=== PATIENT | female | born 1990 | race Caucasian/White ===

== ENCOUNTER 2023-08-13 07:00 | Outpatient (CLI) | payer OTHER, SELFPAY ==
--- NOTE | 2023-08-13 07:15 | US_ITS ---
Patient: KERVIN DIOR Facility:?[facility] Patient ID:?[id number] Site Patient ID:?[id number] Site :?1990 Study:?US-OB Pelvis TV dating/viability-08/13/2023 7:53:00 AM Ordering Physician:JACKIE Final Report: INDICATION: First trimester scan, establish dates. COMPARISON: None. TECHNIQUE: Real-time arzate-scale imaging of the pelvis was performed. FINDINGS: Intrauterine gestational sac measuring 2 cm, 6 weeks 6 days. pole measures 4.6 millimeters, 6 weeks 1 day. 3.0 millimeter yolk sac. No heart tones. Subchorionic hemorrhage is present measures 2.8 x 0.9 x 1.2 cm. Corpus luteal cyst left ovary. Unremarkable right ovary. IMPRESSION: Intrauterine with crown-rump length measuring 4.6 millimeters. No heart tones. Follow-up in 11-14 days recommended. Subchorionic hemorrhage is present measuring 2.8 x 0.9 x 1.2 cm. Dictated by Haider Wellington MD @ 08/13/2023 9:35:45 AM Signed by:?Haider Wellington MD @08/13/2023 9:35:45 AM (Electronic Signature)
== END 2023-08-13 07:01 | disposition home or self-care (01) ==
LOC: US 07:00
PROVIDERS: Visit Provider Registered Nurse
DX: Z34.91 Encounter for supervision of normal pregnancy, unspecified, first trimester (principal); O20.9 Hemorrhage in early pregnancy, unspecified; Z3A.01 Less than 8 weeks gestation of pregnancy
CPT/HCPCS: 76817; 84702; 86850; 86900; 86901

== ENCOUNTER 2023-08-15 13:23 | Outpatient (CLI) | payer OTHER, SELFPAY | END 2023-08-15 13:24 | disposition home or self-care (01) | LOC: NFLDREF 08-18 09:37 | PROVIDERS: Visit Provider Registered Nurse | DX: Z34.01 Encounter for supervision of normal first pregnancy, first trimester (principal) | CPT/HCPCS: 84702 ==

== ENCOUNTER 2023-08-27 08:04 | Outpatient (CLI) | payer OTHER, SELFPAY ==
--- NOTE | 2023-08-27 08:15 | US_ITS ---
Patient: KERVIN DIOR Facility:?[facility] Patient ID:?[id number] Site Patient ID:?[id number]. Site :?1990 Study:?US-OB Pelvis TRANSVAGINAL-08/27/2023 8:33:09 AM Ordering Physician:?HEENA NYE Final Report: OBSTETRICAL ULTRASOUND, 08/27/2023 INDICATION: Early , unknown viability. COMPARISON: 08/13/2023 JOHN by US: 04/06/2024 Gestational age: 8 weeks 1 day TECHNIQUE: Transvaginal pelvic ultrasound. FINDINGS: No intrauterine . Endometrial stripe 5mm, mildly heterogeneous. Right ovary: Within normal limits Left ovary: Within normal limits IMPRESSION: Previously seen intrauterine is no longer present. TAYLER JENKINS M.D. Body/Diagnostic Radiologist [email or web address] NJG:maureen D& Transcribed: 1:[address]/Dictated by: Tayler Jenkins MD @ 08/27/2023 1:05:00 PM Signed by:?Tayler Jenkins MD @08/27/2023 1:23:54 PM (Electronic Signature)
== END 2023-08-27 08:05 | disposition home or self-care (01) ==
PROVIDERS: Visit Provider Registered Nurse
DX: Z34.91 Encounter for supervision of normal pregnancy, unspecified, first trimester (principal); Z3A.08 8 weeks gestation of pregnancy
CPT/HCPCS: 76817

== ENCOUNTER 2024-04-26 16:00 | Outpatient (CLI) | payer OTHER, SELFPAY | END 2024-04-26 16:01 | disposition home or self-care (01) | LOC: NFLDREF 04-29 06:24 | PROVIDERS: Visit Provider Registered Nurse | DX: Z87.59 Personal history of other complications of pregnancy, childbirth and the puerperium (principal) | CPT/HCPCS: 84702 ==

== ENCOUNTER 2024-04-29 16:10 | Outpatient (CLI) | payer OTHER, SELFPAY | END 2024-04-29 16:11 | disposition home or self-care (01) | LOC: NFLDREF 05-04 06:18 | PROVIDERS: Visit Provider Registered Nurse | DX: Z87.59 Personal history of other complications of pregnancy, childbirth and the puerperium (principal) | CPT/HCPCS: 84702 ==

== ENCOUNTER 2024-05-06 13:41 | Outpatient (CLI) | payer OTHER, SELFPAY ==
--- NOTE | 2024-05-06 14:00 | CRLHL7_ITS ---
For Patients: As a result of the Cures Act, medical imaging exams and procedure reports are released immediately into your electronic medical record. You may view this report before your referring provider. If you have questions, please contact your health care provider. INDICATION: First trimester scan, establish dates. COMPARISON: None. TECHNIQUE: Real-time arzate-scale imaging of the pelvis was performed. FINDINGS: Sonographic imaging demonstrates a single living intrauterine gestation. The embryo demonstrates a regular cardiac rate measuring 110 beats per minute. The embryo`s crown-rump length measurement of 1.1 cm corresponds to a gestational age of 7 weeks 2 days with a sonographic due date of 12/21/2024. There is a normal-appearing yolk sac. There are no gross abnormalities noted within the embryo at this early state of development. The gestational sac has a normal appearance. There is no evidence of a perigestational hemorrhage. The amount of fluid within the sac appears appropriate for gestational age. The cervix is closed. The myometrium appears normal. The ovaries are of normal size. Small cysts are present within each ovary. There are no suspicious fluid collections noted in the cul-de-sac. IMPRESSION: Normal first trimester OB ultrasound exam. Gestational age calculated at 7 weeks 2 days with a sonographic due date of 12/21/2024. Dictated by Haider Wellington MD @ 05/07/2024 9:53:20 AM (Electronically Signed)
== END 2024-05-06 13:42 | disposition home or self-care (01) ==
LOC: US 13:43
PROVIDERS: Visit Provider Advanced Practice Midwife
DX: Z34.91 Encounter for supervision of normal pregnancy, unspecified, first trimester (principal); Z3A.01 Less than 8 weeks gestation of pregnancy
CPT/HCPCS: 76817

== ENCOUNTER 2024-05-06 15:46 | Outpatient (CLI) | payer OTHER, SELFPAY | END 2024-05-06 15:47 | disposition home or self-care (01) | PROVIDERS: Visit Provider Advanced Practice Midwife | DX: Z34.91 Encounter for supervision of normal pregnancy, unspecified, first trimester (principal); Z3A.01 Less than 8 weeks gestation of pregnancy | CPT/HCPCS: 83020; 83021; 85660; 86592; 86703; 86704; 86706; 86762; 86787; 86803; 86850; 86900; 86901; 87086; 87340 ==

== ENCOUNTER 2024-08-06 10:06 | Outpatient (CLI) | payer BC, SELFPAY ==
--- NOTE | 2024-08-06 10:15 | CRLHL7_ITS ---
For Patients: As a result of the Century Cures Act, medical imaging exams and procedure reports are released immediately into your electronic medical record. You may view this report before your referring provider. If you have questions, please contact your health care provider. OB ULTRASOUND GREATER THAN 14 WEEKS, 08/06/2024 CLINICAL HISTORY: Anatomy scan. COMPARISON: None. TECHNIQUE: Real time arzate scale imaging of the fetus was performed transabdominally. FINDINGS: LMP: 03/20/2024. JOHN by LMP: 12/25/2024. GA: 19 weeks 6 days. Position: Multiple positions. Placenta/Cord: Fundal, posterior. Technique: TA. Placenta tip to internal OS: 7.7 cm. Umbilical Cord: 3 vessel cord. Placental Insertion: Eccentric, 2.4 cm from edge. Amniotic Fluid: 5.2 cm SDP. Cervix: Visualized. Technique: TA. Length of closed cervix: 4.5 cm. Observed Structures: Calvarium/Spine: Cerebellum 2.2 cm, 21 weeks 6 days Cisterna Magna 3.1 mm Nuchal Fold 4.3 mm Lateral Ventricle 6.5 mm CSP Midline Falx Choroid Plexus Spine Abdomen: Stomach Abd Cord Insert Urinary Bladder Kidneys Diaphragm Face: Nose/Lips Orbital View Profile Limbs: Upper Extremities Lower Extremities Hands Feet Vascular: 4 Ch Heart LVOT RVOT 3VV 2VTV Biometry: BPD: 4.8 cm, 20 weeks 3 days. 74% HC: 18.9 cm, 20 weeks 3 days. 68% AC: 16.2 cm, 21 weeks 2 days. 86% FL: 3.3 cm, 20 weeks 1 day. 53% FL/AC: 20.05% HC/AC Ratio: 1.11. Heart Rate: 147 bpm. Age by this US: 20 weeks 6 days. JOHN by this US: 12/18/2024. EFW: 372.67 grams. 0 lb 13 oz. Percentile by JOHN: 89% IMPRESSION: 1. Sonographic gestational age 20 weeks 6 days and sonographic due date 12/18/2024. Sonographic age 1 week ahead of the clinical age. 2. Estimated weight 89th percentile. Abdominal circumference 86th percentile. 3. Eccentric placental cord insertion 2.4 cm from the placental edge. 4. Incomplete visualization of the spine due to position. Remainder of the anatomic survey normal. Short term follow-up recommended. Haider Wellington M.D. Diagnostic Radiologist [email or web address] Transcribed: 2:17 am DW/Dictated by: Haider Wellington MD @ 08/06/2024 1:13:00 PM (Electronically Signed)
== END 2024-08-06 10:07 | disposition home or self-care (01) ==
LOC: US 10:07
PROVIDERS: Visit Provider Midwife
DX: Z34.92 Encounter for supervision of normal pregnancy, unspecified, second trimester (principal); Z3A.19 19 weeks gestation of pregnancy
CPT/HCPCS: 76805

== ENCOUNTER 2024-08-31 12:09 | Outpatient (CLI) | payer BC, SELFPAY ==
--- NOTE | 2024-08-31 12:15 | CRLHL7_ITS ---
For Patients: As a result of the Century Cures Act, medical imaging exams and procedure reports are released immediately into your electronic medical record. You may view this report before your referring provider. If you have questions, please contact your health care provider. OBSTETRICAL ULTRASOUND ??? FOLLOW-UP, 08/31/2024 INDICATION: Follow-up missing spine views. CLINICAL HISTORY: JOHN by LMP: 12/25/2024 Gestational Age: 23 weeks 3 days COMPARISON: 08/06/2024, 05/06/2024 TECHNIQUE: Real-time arzate-scale imaging of the fetus was performed transabdominal. FINDINGS: Fetus: Single Cervix: Not visualized positioning: Breech Amniotic fluid: 4.3 cm SDP Placenta technique: Transabdominal Placenta position: Posterior heart rate: 154 bpm IMPRESSION: Normal spine. HAIDER BARBOSA M.D. Diagnostic Radiologist [email or web address] Transcribed: 3:[address]/Dictated by: Haider Barbosa MD @ 08/31/2024 2:51:00 PM (Electronically Signed)
== END 2024-08-31 12:10 | disposition home or self-care (01) ==
LOC: US 12:09
PROVIDERS: Visit Provider Advanced Practice Midwife
DX: O35.FXX0 Maternal care for other (suspected) fetal abnormality and damage, fetal musculoskeletal anomalies of trunk, not applicable or unspecified (principal); Z3A.23 23 weeks gestation of pregnancy
CPT/HCPCS: 76816

== ENCOUNTER 2024-09-27 13:30 | Outpatient (CLI) | payer BC, SELFPAY | END 2024-09-27 13:31 | disposition home or self-care (01) | LOC: NFLDREF 09-30 23:21 | PROVIDERS: Visit Provider Advanced Practice Midwife | DX: Z34.92 Encounter for supervision of normal pregnancy, unspecified, second trimester (principal); Z3A.27 27 weeks gestation of pregnancy | CPT/HCPCS: 86592 ==

== ENCOUNTER 2024-11-30 13:08 | Outpatient (CLI) | payer BC, SELFPAY ==
[2024-12-01 13:26] LABS: Strep B DNA Probe Negative (Negative)
[2024-12-01 13:40] LABS: Strep B Susceptibility Needed? No
== END 2024-11-30 13:09 | disposition home or self-care (01) ==
LOC: NFLDREF 13:08
PROVIDERS: Visit Provider Advanced Practice Midwife
DX: Z34.93 Encounter for supervision of normal pregnancy, unspecified, third trimester (principal); Z3A.36 36 weeks gestation of pregnancy
CPT/HCPCS: 87081; 87653

== ENCOUNTER 2024-12-22 15:15 | Inpatient (IN) | payer BC, SELFPAY ==
[2024-12-22] VITALS (27 sets, daily range): BP systolic 109–138; BP diastolic 59–82; PULSE 54–75; RESP 12–18; TEMP 36.6–36.9; O2SAT 96–100; BMI 31.6
[2024-12-22 15:19] LABS: Hematocrit* 41.1 % (33.0-51.0); Hemoglobin* 13.9 gm/dL (12.0-16.0); Immature Granulocytes Abs Auto 0.03 K/uL (0.00-0.30); Immature Granulocytes Pct Auto 0.3 %; Lymphocytes Absolute Auto 2.36 K/uL (0.90-2.90); Mean Corpuscular HGB Conc 34 gm/dL (32-36); Mean Corpuscular Hemoglobin 31 pg (26-34); Mean Corpuscular Volume 91 fL (80-100); RDW Coefficient of Variation % 12.4 % (11.5-15.5); Red Blood Count* 4.52 m/uL (4.00-5.20); White Blood Count* 9.20 K/uL (4.50-11.00)
[2024-12-22] MEDS: LACTATED RINGERS 1000 ML 1,000 ML 1500 ML IV (15:30)
--- NOTE | 2024-12-22 15:33 | P.OBHP_ITS ---
OB - H&P: HPI History of Present Illness Chief complaint: maternity Narrative: Rk Maloney is a 34 year old female seen at 39 weeks 4 days gestational age. She was transferred to triage from clinic, the setting of newly diagnosed breech malpresentation with cervical exam of 5/100/- 1. Patient additionally had mild range blood pressure in the clinic, prompting BP monitoring in triage. Her is complicated only by prediabetes (normal 1 hour Glucola). She is an established patient of the midwifery service, I was consulted by John Jones CNM in the setting of breech malpresentation and advanced cervical dilation. Patient is understandably shaken up and emotional by the news of breech presentation. She notes that she has been having contractions the last few days, does not note that she has really felt many since her arrival in triage. Denies any vaginal bleeding or leaking of fluid. Endorses active movement. Otherwise in her normal state of health. Specific Issues/Plans `Partner: [place]?It is a girl! H&P:? 12/10/24 by Michael Brandon CNM ? #? Prediabetes-elevated hgbA1C 5.7, at NOB, nutrition consult completed. passed 1 hour gct #? Varicella non-immune Recommend vaccine Imaging:??? 05/06/2024: ?Normal first trimester OB ultrasound exam. Gestational age calculated at 7 weeks 2 days with a sonographic due date of 12/21/2024. 08/06/24: 20 week anatomy scan: Impression: 1. Sonographic gestational age 20 weeks 6 days and sonographic due date 12/18/2024. Sonographic age 1 week ahead of the clinical age. 2. Estimated weight 89th percentile. Abdominal circumference 86th percentile. 3. Eccentric placental cord insertion 2.4 cm from the placental edge. 4. Incomplete visualization of the spine due to position. Remainder of the anatomic survey normal. Short term follow-up recommended. Vaccinations:?? COVID: []? Flu: N/A Tdap: Declined 10/11/2024 RSV: N/A 32 week mental health: PHQ-9: 2, JAYLENE 7:3 Last pap:? [Only high-risk abnormal pap results in problem list]? PFSH PFSH Medical History Prediabetes ?R73.03 - Prediabetes (ICD-10) Spontaneous miscarriage ?O03.9 - Complete or unspecified spontaneous without complication (ICD-10) Social History Narrative: SOCIAL? ? Education: Bachelor's times two ? 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 ? Partner: [place]? work as a dog beautician Lives with: [place] Pets: 2 dogs Abuse: Denies past ? Unable to assess current, partner present? ? Special Diet: Denies? ? Ok with a blood transfusion: yes? ? Culture or advent beliefs: denies? RISK FACTORS? ? Exercise Times/wk: 4 times a week lifting and jogging, less since started due to fatigue Depression/Anxiety: denies? ? Previous Treatments NA ? Therapy NA JAYLENE: 2 PHQ 9: 1? ? Seat Belt Use: Routinely ? Smoking: Denies past/present? ? Alcohol/day: Denies while ? ?drinks once a week when not Caffeine: coffee one cup a day? ? Drug Use: Denies past/present? What is your current living situation?: I presently have a place to live Problems where you live: no known problems In the past 12 months, utilities in danger of being shut off: no In past 12 months, lack of transportation kept you from medical appts, meetings, work, or getting things needed for daily living: no In the past 12 mos, have been you worried that your food would run out before you had money to buy more?: never true In the past 12 mos, the food you bought just didn't last and you didn't have money to buy more?: never true Smoking Status: Never smoker How often does anyone, including family, friends and others, physically hurt you : never How often does anyone, including family, friends and others, insult or talk down to you: never How often does anyone, including family, friends and others, threaten you with harm: never How often does anyone, including family, friends and others, scream or curse at you: never Meds Home Medications and Allergies Home Medications ?Medication ?Instructions ?Recorded ?Confirmed ?Type docosahexaenoic acid 200 mg 200 mg PO DAILY 05/06/24 0 12/22/24 History capsule ( DHA) Allergies Allergy/AdvReac Type Severity Reaction Status Date / Time No Known Drug Allergies Allergy Verified 12/22/24 08:38 OB - H&P: Exam Physical Exam: Vital signs: Temp Pulse Resp BP 98.5 F 70 18 131/72 12/22/24 15:15 12/22/24 15:29 12/22/24 15:15 12/22/24 15:29 Narrative: General: Alert and oriented, no acute distress Psych: Appropriate mood and affect Abdomen: Gravid. Transabdominal ultrasound confirms breech male presentation by John Jones CNM. Cervix: 5/100/-1 per John Jones CNM. FHR: Reactive. Baseline of 135 beats per minute, moderate variability, several qualifying 15 x 15 accelerations present. No decelerations. [place]: Siomara about every 3-4 minutes, described as crampy. Assessment and Plan Assessment and plan (1) Breech position of fetus: Status: Acute (2) Prediabetes: Problem comment: 5.7 hgbA1C at NOB Status: Acute (3) : Status: Acute Plan Rk is a 34yo at 39w4d GA admitted for primary in the setting of malpresentation with advanced cervical dilation, 5/100/-1. is complicated by elevated blood pressure without a diagnosis of hypertension , prediabetes (normal 1 hour Glucola). Patient was confirmed to be breech today on bedside ultrasound in the clinic, 5/100/-1 per John Jones CNM. She was transferred to triage for monitoring, discussion of next steps and BP monitoring. On arrival, she has been normotensive. Denies headache, vision changes or right upper quadrant pain. Preeclampsia labs were obtained, pending at this time. I counseled patient on options in the setting of malpresentation at term with advanced cervical dilation. Explained I would advise against a samuel breech vaginal delivery given the associated risks. Typically, we could consider an external cephalic version but I would be hesitant to offer this in the setting as I do think she would be at significantly increased risk of adverse outcomes. Reviewed standard risks of ECV would include unsuccessful procedure, nonreassuring heart tones, rupture membranes, cord prolapse, placental abruption and maternal hemorrhage. Specifically, with her degree of dilation and the breech being well applied to the cervix I think it would be very unlikely to be successful. In addition, I think she would be at significantly increased risk of PROM and potentially cord accident. As such, my medical recommendation would be to proceed with a primary delivery. Discussed the risks and benefits of procedure - including risk of bleeding, infection, damage to surrounding structures (uterus, tubes, ovaries, bowel, bladder, blood vessels, baby), difficult extraction. After discussion, written consent was obtained. She is understandably disappointed but accepts this as the best course of action given a challenging circumstance. Emotional support provided. - Plan to proceed with primary delivery. OR crew notified of unscheduled . - Plan perioperative Ancef. Patient has no known allergies - Type and screen, CBC, creatinine and AST/ALT were drawn at admission - Blood type AB-positive - GBS negative - Pediatrics to attend delivery in the setting of breech and unscheduled
[2024-12-22 15:43] LABS: Slide Review Reflex No
[2024-12-22 16:05] LABS: Alanine Aminotransferase* 19 U/L (4-35); Aspartate Amino Transferase* 41 U/L (12-35)
[2024-12-22 16:21] LABS: Blood Urea Nitrogen* 7 mg/dL (5-24); Creatinine* 0.6 mg/dL (0.5-1.5); Est. Creatinine Clearance* 111.35; Estimated Glomerular Filt Rate 122 ml/min
[2024-12-22] MEDS: CEFAZOLIN 2 GM INJ IVP (16:28)
[2024-12-22] MEDS: OXYTOCIN 30 unit/500 ML in NS 30 UNIT/500 ML BAG 300 UNIT IVPB (16:49)
--- NOTE | 2024-12-22 17:49 | P.ANES_ITS ---
Anesthesia Charges Start Date/Time Anesthesia Start Date: 12/22/24 Anesthesia Start Time: 16:13 Stop Date/Time Anesthesia Stop Date: 12/22/24 Anesthesia Stop Time: 17:44 Coding CPT Codes CPT Codes: ANESTH CS DELIVERY - 95663 ([id number]) P2 - PATIENT W/MILD SYST DISEASE, QZ - CIVIL ENGINEERING PROFESSOR SVC W/O EVAPORATOR SUPERVISOR BY
--- NOTE | 2024-12-22 17:49 | P.NB_ITS ---
Nerve Block Nerve Block Time Seen by Provider: 17:34 Date Seen: 12/22/24 Type of block requested by surgeon for post-operative analgesia: TAP Side: bilateral Time out performed: Yes Verification of patient name: Yes Verification of date of : Yes Site marking: not applicable Name of person performing procedure: Tristan Continuous monitoring Was continuous monitoring of O2 sat, B/P, alarm security or surveillance monitor, recorded every 15 minutes?: Yes Procedure Checklist: sterile prep, needles and gloves Ultrasound guided. Images saved: Yes Medications given in 5ml increments after negative aspiration: Marcaine %: 0.25 mL: 30 Needle gauge: 20 and Exparel mL: 10 Patient tolerated procedure well: Yes Block Charges Block Charge (with Pro Fee): TAP Bilateral Use of Ultrasound Machine for Block: Yes- US Guidance/pain block
--- NOTE | 2024-12-22 17:49 | W.ANESCHARGE ---
Anesthesia Charges Start Date/Time Anesthesia Start Date: 12/22/24 Anesthesia Start Time: 16:13 Stop Date/Time Anesthesia Stop Date: 12/22/24 Anesthesia Stop Time: 17:44 Coding CPT Codes CPT Codes: ANESTH CS DELIVERY - 42323 ([id number]) P2 - PATIENT W/MILD SYST DISEASE, QZ - HEADMASTER/MISTRESS SVC W/O SEISMOLOGY TEACHER BY
--- NOTE | 2024-12-22 17:50 | PM.OBPRCCS ---
Procedure Time Seen by Provider: 17:50 Date of procedure: 12/22/24 Pre-op diagnosis: Breech malpresentation, advanced cervical dilation, elevated BP without a diagnosis of HTN Post-op diagnosis: same Procedure Done: Global Will [facility] bill your pro fee for this procedure?: Yes Blood Loss Measurement Type: QBL (025) Bakri Used: No IV fluids (mL): 1,000 Urine Output (mL): 100 Urine Output Comment: Clear, yellow Surgeon: Woodrow Jaime MD Anesthesia Type: Spinal Findings: Liveborn female fetus, aidee breech presentation Unremarkable uterus, bilateral fallopian tubes and ovaries Procedure Name: Primary delivery Procedure Description: Patient was taken to the operating room with IV running. She received cefazolin in preoperative prophylaxis. Spinal anesthesia was administered. Reed catheter was inserted. She was prepped and draped in the usual sterile fashion. Anesthesia was tested and found to be adequate. A low-transverse skin incision was made with a scalpel and carried through to the underlying layer of fascia with the scalpel. The subcutaneous fat was dissected off the underlying fascia with Bovie and blunt dissection. The fascia was nicked in the midline with a scalpel, and this incision was extended laterally with scissors. The rectus muscles were in the midline. Peritoneum was identified and entered bluntly. Bovie was used to widen this opening laterally. Neno O retractor was inserted and tightened down, providing excellent visualization of the lower uterine segment. The bladder reflection was found to be advanced along the lower uterine segment. A bladder flap was created with a combination of sharp and blunt dissection. Low-transverse uterine incision was made with a scalpel. Incision was widened bluntly. The infant's breech was grasped through the hysterotomy and elevated to the hysterotomy. Fundal pressure was applied in order to facilitate delivery of the body, where legs were noted to be extended where Pinard maneuver was utilized to gently facilitate flexion of the knee and delivery of the lower extremities. Body was delivered to the level of the scapula, where body was rotated and the anterior arm was swept down and out to deliver the right arm via Loveset maneuver. Baby was rotated 180 degrees, where the same was performed to deliver the left arm. Fundal pressure was again applied and the head was flexed by applying gentle pressure on the maxilla where the head was delivered atraumatically. No nuchal cord was noted. Baby was stimulated, noted to be vigorous. Cord was clamped and cut after 30 seconds. was handed off to attending Pediatrics provider and nurses. The placenta was delivered with gentle traction on the cord. The uterus was cleaned of all clots and debris with the dry lap pad. IV Pitocin infusion was started. The hysterotomy was reapproximated with 0 Vicryl in a running, locked fashion. Second layer of the same suture was used in imbricating fashion to obtain hemostasis. The adnexa were examined and noted to be normal in appearance. The cul-de-sac and gutters were cleansed with dampened laparotomy sponge, removing any further clots and debris. The Neno O retractor was removed. The hysterotomy was reexamined and found to be hemostatic. The rectus muscles were examined and found to be hemostatic. The fascia was reapproximated with 0 Vicryl in a running fashion. Subcutaneous fat was irrigated and Bovie used on oozing vessels. The subcutaneous fat did not require closure. The skin was closed with a subcuticular stitch of 3-0 monocryl. Surgical glue was applied above this. Patient tolerated procedure well was taken to recovery area in stable condition. Surgical debrief was completed. details: - Liveborn female fetus - weight: 3500g - APGARs were 8 and 9 at 1 and 5 minutes respectively Complications: None Pathology: specimen obtained, sent to pathology Surgery Debrief Performed: Yes Condition: stable Disposition: floor total score - 1 minute: 8 total score - 5 minute: 9
[2024-12-22] MEDS: LACTATED RINGERS 1000 ML 1,000 ML 125 ML IV (19:08)
[2024-12-22] MEDS: ACETAMINOPHEN 500 MG TABLET 1000 MG PO (19:09)
[2024-12-22 21:01] LABS: Protein Creatinine Ratio Urine 0.38 (0-0.19)
[2024-12-23] VITALS (21 sets, daily range): BP systolic 112–126; BP diastolic 65–76; PULSE 57–68; RESP 16; TEMP 36.6–37.2; O2SAT 95–98
[2024-12-23] MEDS: LACTATED RINGERS 1000 ML 1,000 ML 125 ML IV (02:20)
[2024-12-23 05:45] LABS: Hemoglobin* 10.3 gm/dL (12.0-16.0)
--- NOTE | 2024-12-23 09:20 | PM.OBPNVD1 ---
OB - PN:Subj Subjective Date Seen: 12/23/24 Patient comments OB post-: no complaints, pain well controlled and tolerating diet infant status: and doing well feeding status: exclusively Narrative: Rk feels well.? Her pain is well controlled with current medications.? She has no new complaints.? Urinary output is adequate and she is voiding without difficulty.? Has a good appetite, is tolerating a general diet. She has not yet passed flatus but feels that her stomach is gurgling. Encouraged ambulation/movement to encouraged flatus.? Has scant amount of rubra lochia.? She is ambulating well.?She is working on latching and has hand expressed and fed that to baby. Encouraged and RN assistance to improve latching. Blood pressures have remained in the normal range since delivery. OB - PN: Obj Exam Physical Exam: Vital signs: Temp Pulse Resp BP Pulse Ox O2 Del Method 98.1 F 63 16 112/68 98 Room Air 12/23/24 08:06 12/23/24 08:06 12/23/24 08:06 12/23/24 08:06 12/23/24 08:06 12/23/24 08:06 Narrative: GENERAL APPEARANCE:? normal affect, alert, no distress? MOOD:? appropriate? CHEST:? clear to auscultation and percussion? HEART:? regular rate and rhythm? BREASTS: soft, nontender, no erythema, nipples intact? ABDOMEN:? soft, non-tender the uterine fundus is U/2 and is appropriate for the stage of recovery. Incision dressing is clean, dry and intact without drainage evident.? EXTREMITIES:? normal and no edema? OB - PN: Obj Data Labs Labs: Laboratory Results - last 24 hr 12/22/24 12/23/24 14:57 05:19 WBC 9.20 RBC 4.52 Hgb 13.9 10.3 L Hct 41.1 MCV 91 MCH 31 MCHC 34 RDW Coeff of Ceferino 12.4 Plt Count 165 Neut % (Auto) 66.8 Lymph % (Auto) 25.7 [place] % (Auto) 6.5 Eos % (Auto) 0.5 Baso % (Auto) 0.2 Neut # (Auto) 6.14 Lymph # (Auto) 2.36 [place] # (Auto) 0.60 Eos # (Auto) 0.05 Baso # (Auto) 0.02 Abs Immat Gran (auto) 0.03 Imm/Tot Granulo (auto) 0.3 BUN 7 Creatinine 0.6 Estimated Creat Clear 111.35 Estimated GFR 122 AST 41 H ALT 19 Urine Creatinine 46.9 Protein/Creatinin Ratio 0.38 H Urine Total Protein 18 Blood Type AB Positive Antibody Screen NEGATIVE OB - PN: A/P Delivery Assessment and Plan (1) Breech position of fetus: Status: Acute (2) Prediabetes: Problem details: 5.7 hgbA1C at NOB Status: Acute (3) Lactating mother: Status: Acute (4) care following delivery: Status: Acute (5) Elevated blood pressure reading without diagnosis of hypertension: Status: Acute Plan day: 1 Plan: routine care Comments: Anticipate discharge home tomorrow or the following day per patient preference.
[2024-12-23] MEDS: DOCUSATE SODIUM 100 MG CAPSULE PO (10:29)
[2024-12-23] MEDS: SODIUM CHLORIDE 0.9 % (FLUSH) 10 ML SYRINGE IVF ×2 (10:30→11:55)
[2024-12-23] MEDS: IBUPROFEN 600 MG TABLET PO (19:38)
[2024-12-24 00:53] VITALS: BP 138/86; PULSE 75; RESP 16; TEMP 36.7; O2SAT 97
[2024-12-24] MEDS: ACETAMINOPHEN 500 MG TABLET 1000 MG PO ×3 (01:00→16:56)
[2024-12-24 06:30] VITALS: BP 114/66; PULSE 60; RESP 16; O2SAT 97
[2024-12-24] MEDS: IBUPROFEN 600 MG TABLET PO (06:35)
[2024-12-24 08:00] VITALS: BP 131/76; PULSE 70; RESP 18; TEMP 36.7; O2SAT 97
[2024-12-24] MEDS: DOCUSATE SODIUM 100 MG CAPSULE PO (08:09)
--- NOTE | 2024-12-24 08:16 | PM.OBPNVD1 ---
OB - PN:Subj Subjective Date Seen: 12/24/24 Narrative: Rk is a 34 y.o. G 2 P 1 who was admitted to [facility] for primary c/s for breech presentation with elevated BP's. She has not yet met criteria for HTN.?She had a section that was uncomplicated. The patient feels well. ?The pain is well controlled with current medications. ?She has no new complaints. ?She is breast feeding and reports things are going ok but baby does not latch well. She plans to work with and nursing today to assist with . the patient has done well.? Vitals have been stable.? She has remained afebrile.? Has a good appetite, is tolerating a general diet. ?She is voiding without difficulty.? She is passing gas and has not had a bowel movement.? She is ambulating and denies any dizziness.? Has small amount of rubra lochia. Problems: Mild Anemia OB - PN: Obj Exam Physical Exam: Vital signs: Temp Pulse Resp BP Pulse Ox O2 Del Method 98.1 F 60 16 114/66 97 Room Air 12/24/24 00:53 12/24/24 06:30 12/24/24 06:30 12/24/24 06:30 12/24/24 06:30 12/24/24 06:30 Narrative: GENERAL APPEARANCE:? normal affect, alert, no distress MOOD:? appropriate CHEST:? clear to auscultation HEART:? regular rate and rhythm ABDOMEN:? soft, non-tender the uterine fundus is At Umbilicus, Midline and is appropriate for the stage of recovery. EXTREMITIES:? normal and no edema INCISION: Healing well, no surrounding erythema, abnormal induration or discharge OB - PN: A/P Delivery Assessment and Plan (1) care following delivery: Status: Acute (2) Lactating mother: Status: Acute (3) Elevated blood pressure reading without diagnosis of hypertension: Status: Acute Plan day: 2 Plan: routine care Comments: Encouraged to stay for additional assistance with feeding. , may see if needed? Hgb 10.3. ? Elevated BP without diagnosis of HTN?? Anticipate discharge tomorrow For pain control of perineum, breast and pelvic pain, take 600 mg Ibuprofen every 6 hours as needed by mouth or 1000 mg acetaminophen (Tylenol) every 6 hours by mouth as needed. You can alternate these so you are taking something every 3 hours as needed. A heating pad can also be used for your abdomen or breasts. You may also take docusate sodium up to twice daily to soften your stools and help to prevent constipation. You may wean off of it when your stools return to normal.?
--- NOTE | 2024-12-24 14:59 | PM.OBDSVD1 ---
DS: Providers Provider Date Seen: 12/24/24 Date of admission: 12/22/24 15:15 Primary care physician: Not a Local Provider Admitting Clinician: Yesenia Jaime MD Attending Physician on discharge: Phuong Frausto CNM DS: Diagnosis Discharge Diagnosis (1) care following delivery: Status: Acute (2) Lactating mother: Status: Acute (3) Elevated blood pressure reading without diagnosis of hypertension: Status: Acute Exam Const: Vital Signs, click to edit/add: Vital Signs - 24 hr 12/23/24 15:57 12/23/24 15:58 12/23/24 21:29 Temperature 98.3 F 97.8 F Pulse Rate [Pulse Oximeter] 68 57 L Respiratory Rate 16 16 16 Blood Pressure [Le ft Arm] 114/71 121/65 Pulse Oximetry 97 95 Oxygen Delivery Me thod Room Air Room Air 12/24/24 00:53 12/24/24 06:30 12/24/24 08:00 Temperature 98.1 F 98.1 F Pulse Rate [Pulse Oximeter] 75 60 70 Respiratory Rate 16 16 18 Blood Pressure [Le ft Arm] 138/86 114/66 131/76 Pulse Oximetry 97 97 97 Oxygen Delivery Me thod Room Air Room Air Room Air OB - DS: Summary Hospital Course Hospital Course: Please see previous notes, patient has now requested to discharge and stable for d/c. Peripartum Data delivery method: Primary C/S; Non-Labored Laceration description: None Procedures: Procedures Operation Date: 12/22/24 17:00 Actual Procedure Side Surgeon p Primary Delivery Yesenia Jaime MD complications: none [place] Gender: Female Discharge Plan: Home Status at Discharge Functional status at discharge: independent ambulation Overall status at discharge: patient is progressing back to baseline Time Spent with Patient Time attestation: Total time spent providing and/or coordinating discharge services: Time spent: Less than 30 minutes Discharge Plan Discharge Disposition: Home, Self-Care Date of Admission: 12/22/24 15:15 Attending Provider on Discharge: Phuong Frausto Primary Care Provider: Provider,Not a Local Condition: Stable Anticipated Discharge Date/Time: 12/24/24 17:00 Discharge Medications: New acetaminophen 500 mg Tablet 1,000 mg PO Q6H PRN (Reason: pain/fever) Qty: 0 0RF docusate sodium 100 mg Capsule 100 mg PO DAILY Qty: 60 0RF ibuprofen 600 mg Tablet 600 mg PO Q6H PRN (Reason: Pain) Qty: 60 0RF oxycodone 5 mg Tablet 5 - 10 mg PO Q4H PRN (Reason: Pain) Qty: 15 0RF Continued DHA 200 mg capsule 200 mg PO DAILY Discharge Orders: Discharge Order (Routine); Ordered 12/24/24 Ordered By: Phuong Frausto Patient Education: OB /Breast Feeding, OB Over the Counter Medication Information Activity Level: Activity as Tolerated Discharge Diet: Regular Follow Up Appointments: [facility] [Provider Group] Forms: MyHealth Info Instructions
[2024-12-24 15:00] VITALS: BP 128/76; PULSE 84; RESP 18; TEMP 36.5; O2SAT 97
== END 2024-12-24 17:00 | disposition home or self-care (01) | DRG 540 ==
LOC: OB OUT 15:15 → OB 15:15
PROVIDERS: Admitting Provider Obstetrics & Gynecology; Visit Provider Midwife
PROC: 10D00Z1 Extraction of Products of Conception, Low, Open Approach (ICD-10-PCS; CPT 59514; principal; 2024-12-22 17:00)
DX: O32.1XX0 Maternal care for breech presentation, not applicable or unspecified (principal); R03.0 Elevated blood-pressure reading, without diagnosis of hypertension; O99.892 Other specified diseases and conditions complicating childbirth; R73.03 Prediabetes; G89.18 Other acute postprocedural pain; Z3A.39 39 weeks gestation of pregnancy; Z37.0 Single live birth
CPT/HCPCS: 01961; 36415; 64488; 76942; 82565; 82570; 84156; 84450; 84460; 84520; 85018; 85025; 86592; 86850; 86900; 86901; 88307; A4314; A9270; J0665; J0666; J0690; J1100; J1885; J2274; J2371; J2405; J2590; J2765; J3010; J7120